=== PATIENT | male | born 1980 | race Hispanic/Latino ===

== ENCOUNTER 2022-11-19 14:35 | Emergency (ER) | payer SELFPAY ==
[2022-11-19] MEDS ORDERED: Ketorolac Tromethamine 30 MG/ML VIAL ONE (15:15)
[2022-11-19] MEDS ORDERED: Cyclobenzaprine 10 MG TAB ONE (15:16)
[2022-11-19 15:30] LABS: Bilirubin Neg (Negative); Blood, Urine Negative (Negative); Clarity Clear (Clear); Glucose, Urine (Dipstick) Normal (Negative); Ketone, Urine Negative (Negative); Leukocyte Negative (Negative); Nitrite Negative (Negative); Protein, Urine (Dipstick) Negative (Neg-Trace); Specific Gravity, Urine 1.015 (1.005-1.030); Urobilinogen Normal mg/dL (Less than 2)
[2022-11-19 15:42] LABS: Bacteria/HPF None Seen HPF (None Seen); CAUTI Indications for Culture Pelvic or flank pain; RBC/HPF None Seen HPF (0-3); Squamous Epithelial 0-3 HPF (0-3); WBC/HPF 0-3 HPF (0-3)
[2022-11-19 15:43] LABS: Urine Culture Reflex No No
== END 2022-11-19 15:52 | disposition home or self-care (01) ==
LOC: CSHERS 14:35
DX: M54.50 Low back pain, unspecified (principal)
CPT/HCPCS: 81001; 96372; 99283; J1885

== ENCOUNTER 2024-03-21 15:28 | Emergency (ER) | payer SELFPAY ==
[2024-03-21] MEDS ORDERED: Ketorolac Tromethamine 30 MG (1 mL) VIAL ONE (16:11)
[2024-03-21] MEDS ORDERED: predniSONE 20 MG TAB ONE (16:12)
[2024-03-22] MEDS ORDERED: Sevoflurane 250 ML INH ANEST BOTTLE ONE (07:46)
== END 2024-03-21 18:15 | disposition home or self-care (01) ==
LOC: CSHERS 15:28
DX: J11.1 Influenza due to unidentified influenza virus with other respiratory manifestations (principal)
CPT/HCPCS: 87428; 93005; 96372; 99284; J1885; J7512